=== PATIENT | male | born 1960 | race Caucasian/White ===

== ENCOUNTER 2016-09-22 05:32 | Emergency (ER) ==
[2016-09-22 05:45] VITALS: BP 138/79; TEMP 101.3; BMI 25.1
[2016-09-22] MEDS ORDERED: DECADRON 4 MG/ML SDV IM STA (05:45)
[2016-09-22] MEDS ORDERED: TORADOL IM STA (05:45)
[2016-09-22] MEDS ORDERED: ZOFRAN 4 MG/2 ML IM STA (05:45)
--- NOTE | 2016-09-22 05:48 | ED.PDOC ---
General ED Provider: Dr. NATA BROWN Chief Complaint: Sore Throat Stated Complaint: sinus drainage, sore throat. fever, vomited 4 times. Time Seen by Physician: 05:46 Mode of Arrival: Walk-In Information Source: Patient Primary Care Provider: DUTCH KING Nursing and Triage Documentation Reviewed and Agree: Yes EENT Complaint Exam - Throat Complaint/Exam Symptoms Are: Still present Timimg: Constant Initial Severity: Moderate Current Severity: Moderate Aggravating: Reports: Eating Alleviating: Reports: None Associated Signs and Symptoms: Reports: Fever, Dysphagia, Cough, Sinus discomfort, Nasal congestion, Vomiting. Denies: Drooling, Foreign body sensation, Chills, Wheezing, Hoarseness, Difficulty breathing, Lethargy, Irritability, Decreased activity, Diarrhea, Decreased hearing, Ear drainage Uvula Midline: Yes Criss-tonsillar Fluctuence: No Scarlatinaform Rash Present: No Stridor Present: No Sinus Tenderness Present: Yes Tonsillar Hypertrophy Present: No Tonsillar Exudate Present: No Criss-tonsillar Swelling Present: No Adenopathy Present: Yes Differential Diagnoses: Influenza, Pharyngitis, URI Review of Systems - Review Of Systems Constitutional: Reports: Malaise, Weakness Eyes: Reports: No symptoms Ears, Nose, Mouth, Throat: Reports: Nose discharge, Throat pain Respiratory: Reports: Cough Cardiac: Reports: No symptoms GI: Reports: Nausea, Vomiting : Reports: No symptoms Musculoskeletal: Reports: No symptoms Skin: Reports: No symptoms Neurological: Reports: No symptoms Endocrine: Reports: No symptoms Hematologic/Lymphatic: Reports: No symptoms All Other Systems: Reviewed and Negative Past Medical History - Past Medical History Previously Healthy: No Endocrine: Reports: None Cardiovascular: Reports: CAD (s/p stent), Hypertension Respiratory: Reports: None Hematological: Reports: None Gastrointestinal: Reports: None Genitourinary: Reports: None Neuro/Psych: Reports: None Musculoskeletal: Reports: None Cancer: Reports: None - Surgical History General Surgical History: Reports: None - Family History Family History: Reports: None - Social History Smoking Status: Never smoker Hx Substance Use: No Alcohol Screening: None - Immunizations Tetanus Shot up to Date: Yes (states had approx 3 yrs ago) Physical Exam - Physical Exam Appearance: Ill-appearing, Obese Eyes: DIANDRA, EOMI, Conjunctiva clear ENT: Erythema Respiratory: Airway patent, Breath sounds clear, Breath sounds equal, Respirations nonlabored Cardiovascular: RRR, Pulses normal, No rub, No murmur GI/: Soft, Nontender, No masses, Bowel sounds normal, No Organomegaly Musculoskeletal: Normal strength, ROM intact, No edema, No calf tenderness Skin: Warm, Dry, Normal color Neurological: Sensation intact, Motor intact, Reflexes intact, Cranial nerves intact, Alert, Oriented Psychiatric: Affect appropriate, Mood appropriate Critical Care Note - Critical Care Note Total Time (mins): 0 Course - Course Hematology/Chemistry: 09/22/16 06:00 09/22/16 06:00 Orders, Labs, Meds: Orders Category Date Time Status RAPID FLU A/B Stat LAB 09/22/16 05:45 Uncollected STREP SCREEN Stat LAB 09/22/16 05:45 Uncollected Dexamethasone 4 mg/ml Inj [Decadron 4 mg/ml Sdv] MEDS 09/22/16 05:45 Discontinued 4 mg IM ONCE STA Ketorolac Tromethamine [Toradol] MEDS 09/22/16 05:45 Discontinued 30 mg IM ONCE STA Ondansetron HCl/Pf [Zofran 4 mg/2 ml] MEDS 09/22/16 05:45 Discontinued 4 mg IM ONCE STA Medications Discontinued Medications Generic Name Dose Route Start Last Admin Trade Name Freq PRN Reason Stop Dose Admin Dexamethasone Sodium Phosphate 4 mg 09/22/16 05:45 Decadron 4 Mg/Ml Sdv IM 09/22/16 05:46 ONCE STA Ketorolac Tromethamine 30 mg 09/22/16 05:45 Toradol IM 09/22/16 05:46 ONCE STA Ondansetron HCl 4 mg 09/22/16 05:45 Zofran 4 Mg/2 Ml IM 09/22/16 05:46 ONCE STA Vital Signs: Temp Pulse Resp BP Pulse Ox 09/22/16 05:33 101.3 F H 113 H 20 138/79 98 Departure - Departure Time of Disposition: 07:13 Disposition: HOME SELF-CARE Discharge Problem: URTI (acute upper respiratory infection), Influenza Instructions: Upper Respiratory Infection (ED) Condition: Stable Pt referred to PMD for follow-up: No Additional Instructions: INCREASE HYDRATION SOFT DIET TYLENOL PRN Prescriptions: Oseltamivir Phosphate [Tamiflu] 75 mg PO Q12HR #9 cap Ondansetron [Zofran Odt] 4 mg PO Q8H #20 tab.rapdis Prednisone 10 mg PO BIDWM #14 tablet Allergies/Adverse Reactions: Allergies No Known Allergies Allergy (Verified 09/22/16 05:43) Home Medications: Ambulatory Orders Aspirin [Aspirin EC] 81 mg PO DAILYWM 09/22/16 Atorvastatin Calcium [Lipitor] 40 mg PO BEDTIME 09/22/16 Azithromycin [Zithromax] 250 mg PO DAILY 09/22/16 Metoprolol Succinate [Toprol Xl] 25 mg PO DAILY 09/22/16 Ondansetron [Zofran Odt] 4 mg PO Q8H #20 tab.rapdis 09/22/16 Oseltamivir Phosphate [Tamiflu] 75 mg PO Q12HR #9 cap 09/22/16 Pantoprazole Sodium [Protonix] 40 mg PO DAILY 09/22/16 Prasugrel HCl [Effient] 5 mg PO DAILY 09/22/16 Prednisone 10 mg PO BIDWM #14 tablet 09/22/16 Disposition Discussed With: Patient, Family
[2016-09-22 06:03] LABS: BASOPHILS % (AUTO) 0.3 % (0.0-3.0); EOSINOPHILS % (AUTO) 0.5 % (0.0-7.0); HEMATOCRIT 41.1 % (42.0-52.0); HEMOGLOBIN 14.1 g/dl (14.0-18.0); IMMATURE GRANULOCYTE % (AUTO) 0.3 % (0.0-5.0); LYMPHOCYTES # (AUTO) 0.4 K/uL (0.60-3.4); MEAN CORPUSCULAR HEMOGLOBIN 29.3 pg (27.0-31.0); MEAN CORPUSCULAR HGB CONC 34.3 (31.8-35.4); MEAN CORPUSCULAR VOLUME 85.4 fl (80.0-94.0); MONOCYTES # (AUTO) 0.6 K/uL (0.4-2.0); NEUTROPHILS # (AUTO) 4.8 K/ul (2.0-6.9); NEUTROPHILS % (AUTO) 81.9; PLATELET COUNT 159 10^3/uL (140-440); RED BLOOD COUNT 4.81 10^6/ul (4.70-6.10); WHITE BLOOD COUNT 5.81 K/ul (4.2-10.2)
[2016-09-22 06:23] LABS: ALBUMIN 3.8 g/dL (3.4-5.0); ALBUMIN/GLOBULIN RATIO 1.12; ANION GAP 12.7; POTASSIUM 3.7 mmol/L (3.5-5.1); TOTAL PROTEIN 7.2 g/dL (6.4-8.2)
[2016-09-22 06:24] LABS: BILIRUBIN,TOTAL 0.55 mg/dL (0.00-1.20); BUN/CREATININE RATIO 10.52; CREATININE 0.95 mg/dL (0.60-1.10)
[2016-09-22 06:28] LABS: FLU INTERNAL QC INTERNAL QC VALID; RAPID FLU A POSITIVE (NEGATIVE); RAPID FLU B NEGATIVE (NEGATIVE)
[2016-09-22] MEDS ORDERED: TAMIFLU PO STA (07:12)
== END 2016-09-22 07:29 | disposition home or self-care (01) ==
LOC: ED 05:32
DX: J06.9 Acute upper respiratory infection, unspecified (principal)
CPT/HCPCS: 36415; 80053; 83605; 84145; 85025; 87651; 87804; 87880; 96372; 99283

== ENCOUNTER 2018-01-23 08:56 | Day surgery (SDC) ==
[2018-01-23 09:43] VITALS: TEMP 97.1
[2018-01-23] MEDS ORDERED: LIDOCAINE 1% 20 ML MDV ID STA (09:47)
[2018-01-23] MEDS ORDERED: DIPRIVAN 20 ML VIAL IVP ONE (10:35)
[2018-01-23 11:12] VITALS: BP 108/65
--- NOTE | 2018-01-24 11:41 | OP ---
PROCEDURE: COLONOSCOPY TO THE CECUM. ENDOSCOPIST: Angel CASTILLO M.D. INDICATION: SCREENING INSTRUMENT: [id number]. MEDICATION: PER ANESTHESIA. PROCEDURE: The patient was positioned for colonoscopy. The digital rectal exam was negative. The colonoscope was inserted through the anus and advanced to the cecum. The cecum was identified using the ileocecal valve and the appendiceal orifice as landmarks. The scope was slowly withdrawn through an adequately prepped colon. [place] Bowel Prep score was 9. A few diverticuli in the left colon. The retroflex exam was otherwise normal Withdraw time 8 minutes and 9 seconds. PLAN: 1. Suggest repeat colonoscopy in 10 years for screening. CC: Dr. Cayden DUMONT
== END 2018-01-23 11:30 | disposition home or self-care (01) ==
LOC: SURG 08:56
PROVIDERS: ATTEND Internal Medicine Gastroenterology
DX: Z12.11 Encounter for screening for malignant neoplasm of colon (principal)